=== PATIENT | female | born 2000 | race Two or more races ===

== ENCOUNTER → 2025-08-04 | Emergency (ER) | payer OTHER ==
[~2025-08-04] VITALS: Ht 165.1 cm; Wt 63.5 kg
[~2025-08-04] MED LIST: 0.9 % SODIUM CHLORIDE 1,000 ML IV STA; ACETAMINOPHEN 500 MG GEL..CAP PO ONE; CLARITIN10 MG PO; DELSYM COUGH+C180 ML PO; DEXAMETHASONE SODIUM PHOSPHATE 4 MG/ML VIAL IM STA; DEXAMETHASONE SODIUM PHOSPHATE 4 MG/ML VIAL ONE; FAMOTIDINE/PF 20 MG/2 ML VIAL IV STA; FAMOTIDINE/PF 20 MG/2 ML VIAL ONE; GUAIFENESIN 200 MG/10 ML BLIST.PACK PO ONE; ONDANSETRON HCL 2 MG/ML VIAL IV STA; ONDANSETRON HCL 2 MG/ML VIAL ONE; OSEL75CA PO
[2025-08-04 11:42] LABS: BASO % 0.2 % (0.1-1.2); EOS # 0.00 (0.04-0.54); EOS % 0.0 % (0.7-7.0); LYMPH # 0.66 (1.18-3.74); LYMPH % 11.7 % (19.3-53.1); MEAN PLATELET VOLUME 10.10 fl (9.4-12.4); MONO # 0.51 (0.24-0.82); MONO % 9.0 % (4.7-12.5); NEUT # 4.47 (1.56-6.13); NEUT % 78.9 % (34.0-71.1); RED CELL DISTRIBUTION WIDTH 11.1 % (11.6-14.4)
[2025-08-04 12:02] LABS: BUN CREA RATIO 12.0 (7.0-25.0); CREATININE SERUM 0.82 mg/dL (0.55-1.02); GFR 85.65; GLUCOSE FASTING 121.0 mg/dL (65-100); OSMOLALITY SERUM 274.0 MOSM/KG (275-295)
[2025-08-04 13:13] LABS: COVID-19 AG NEGATIVE (NEGATIVE)
== END | disposition home or self-care (01) ==
LOC: ER 10:34
PROVIDERS: General Practice
DX: J10.1 Influenza due to other identified influenza virus with other respiratory manifestations (principal); Z20.822 Contact with and (suspected) exposure to COVID-19